=== PATIENT | male | born 1960 | race Caucasian/White ===

== ENCOUNTER → 2016-04-24 | Outpatient (CLI) | payer BC ==
--- NOTE | 2016-04-24 14:40 | Diagnostic Imaging Report ---
Indications: 2 weeks history of pain beneath the second and third metatarsal heads Technique: 3 views of the right foot Findings: Comparison: None. No fracture, dislocation, lytic destruction, periosteal reaction, surrounding soft tissue swelling/gas/foreign body, or other acute changes are demonstrated. Suggestion of mild subluxation of the second proximal interphalangeal joint. Smoothly marginated, elongated sclerotic focus within mid diaphysis of fourth metatarsal, based against the cortical endosteal surface. No associated contour deformity/remodeling. No arthritic change, soft tissue calcification, or other chronic changes are demonstrated. IMPRESSION: No evidence of acute abnormality, particularly in the region of the second and third metatarsals Fourth metatarsal sclerotic focus, nonspecific, may represent chronic sequela of previous injury Apparent mild subluxation of second proximal interphalangeal joint, likely chronic
== END | disposition home or self-care (01) ==
LOC: EEVIPCON 13:11 → RAD 13:11
DX: M25.571 Pain in right ankle and joints of right foot (principal)